=== PATIENT | female | born 1975 | race Caucasian/White ===

== ENCOUNTER 2021-08-20 16:30 | Emergency (ER) | payer OTHER ==
[~2021-08-20] VITALS: Ht 152.4 cm; Wt 59.4 kg
[2021-08-20 16:39] VITALS: BP 141/89
--- NOTE | 2021-08-20 16:52 | NUR ---
JAYASHREE SEAMAN AT PATIENT'S BEDSIDE
[2021-08-20] MEDS ORDERED: ONDANSETRON 4 MG ODT PO ONE (16:55)
--- NOTE | 2021-08-20 17:15 | NUR ---
46 Y/O FEMALE C/O VAGINAL BLEEDING SINCE SUNDAY. PT STATES "I WAS HEMORRHAGING ON SUNDAY WITH LARGE CLOTS. STATES SPOTTING TODAY. REPORTS NAUSEA AND DENIES VOMITING. PT DENIES ANY CURRENT. PT STATES MAY HAVE HAD POSSIBLE MISCARRIAGE. MEDHX: DENIES NKA
--- NOTE | 2021-08-20 17:29 | NUR ---
BROADCASTER AT BEDSIDE COLLECTING BLOOD.
[2021-08-20 17:44] LABS: BASOPHILS % (AUTO) 0.2 % (0.0-2.0); EOSINOPHILS % (AUTO) 0.4 % (0.0-4.0); HEMATOCRIT 30.4 % (36-48); HEMOGLOBIN 10.2 g/dL (12.0-16.0); LYMPHOCYTES # (AUTO) 1.8 K/uL (2.5-16.5); LYMPHOCYTES % (AUTO) 19.5 % (20.5-51.1); MEAN CORPUSCULAR HEMOGLOBIN 28 pg (27-31); MEAN CORPUSCULAR HGB CONC 34 g/dL (33-37); MONOCYTES # (AUTO) 0.8 K/uL (0.8-1.0); MONOCYTES % (AUTO) 8.7 % (1.7-9.3); NEUTROPHILS # (AUTO) 6.7 K/uL (1.8-7.7); NEUTROPHILS % (AUTO) 71.2 % (42.2-75.2); PLATELET COUNT (AUTO) 278 K/uL (140-450); RED BLOOD CELL COUNT(AUTO) 3.67 MIL/uL (4.20-5.40); RED CELL DISTRIBUTION WIDTH 13.5 % (11.6-13.7); WHITE BLOOD COUNT (AUTO) 9.4 K/uL (4.8-10.8)
--- NOTE | 2021-08-20 18:10 | NUR ---
US TECH AT BEDSIDE
[2021-08-20 18:26] LABS: APPEARANCE,URINE CLEAR (CLEAR); BILIRUBIN,URINE NEGATIVE (NEGATIVE); BLOOD, URINE 1+ (NEGATIVE); COLOR,URINE YELLOW (YELLOW); LEUKOCYTE ESTERASE ,URINE NEGATIVE (NEGATIVE); NITRITE, URINE NEGATIVE (NEGATIVE); PH,URINE 5.5 (5.0-9.0); UGLUCOSE NEGATIVE (NEGATIVE)
[2021-08-20 18:50] LABS: OTHER CASTS, URINE None Seen /LPF (None Seen); WBC,URINE 0-5 /HPF (0-5)
[2021-08-20] MEDS ORDERED: ACETAMINOPHEN 325 MG TAB PO ONE (19:00)
--- NOTE | 2021-08-20 19:40 | NUR ---
ENDORSED TO CONSUMER SAFETY INSPECTOR RN FOR CONTINUITY OF CARE.
[2021-08-20] MEDS ORDERED: METO-486 PO (20:10)
[2021-08-20] MEDS ORDERED: DOXY1TCP PO (20:10)
[2021-08-20] MEDS ORDERED: ACET-10509 PO (20:10)
[2021-08-20 20:18] VITALS: BP 95/82
--- NOTE | 2021-08-20 20:18 | NUR ---
Patient discharged with v/s stable. Written and verbal after care instructions given and explained. Patient alert, oriented and verbalized understanding of instructions. Ambulatory with steady gait. All questions addressed prior to discharge. ID band removed. Patient advised to follow up with PMD. Rx of REGLAN, TYLENOL, DICLEGIS given. Patient educated on indication of medication including possible reaction and side effects. Opportunity to ask questions provided and answered.
== END 2021-08-20 20:18 | disposition home or self-care (01) ==
LOC: MED 16:30
DX: O20.0 Threatened abortion (principal); F17.210 Nicotine dependence, cigarettes, uncomplicated; F14.90 Cocaine use, unspecified, uncomplicated; Z3A.01 Less than 8 weeks gestation of pregnancy
CPT/HCPCS: 36415; 76817; 81001; 81025; 84702; 85025; 86900; 86901; 99284; Q0092; Q0162